=== PATIENT | female | born 1985 | race Hispanic/Latino ===

== ENCOUNTER 2017-10-13 09:27 | Emergency (ER) | payer BC, SELFPAY | END 2017-10-13 10:36 | disposition home or self-care (01) | LOC: ERS 09:27 | DX: F31.9 Bipolar disorder, unspecified; N63.10 Unspecified lump in the right breast, unspecified quadrant | CPT/HCPCS: 99283 ==

== ENCOUNTER 2018-02-13 14:23 | Outpatient (CLI) | payer MEDICAID | END 2018-02-13 14:24 | disposition home or self-care (01) | LOC: BICMAMMO 14:23 | PROVIDERS: ATTEND Nurse Practitioner Women's Health | DX: N63.10 Unspecified lump in the right breast, unspecified quadrant (principal) | CPT/HCPCS: 77066; G0279 ==

== ENCOUNTER 2018-06-19 07:39 | Outpatient (CLI) | payer MEDICAID ==
--- NOTE | 2018-06-19 09:29 | ULT ---
TRANSABDOMINAL AND TRANSVAGINAL PELVIC ULTRASOUND WITH DOPPLER: DATE: 06/19/2018. PROVIDED CLINICAL HISTORY: Amenorrhea, negative beta HCG. FINDINGS: Uterus measures approximately 8.2 x 4.3 x 4.3 cm and demonstrates a normal sonographic appearance to the uterine myometrium. Endometrial thickness is about 1.1 cm. The right ovary measures about 3.8 x 1.4 x 1.7 cm and appears sonographically unremarkable. The left ovary measures about 3.5 x 2.3 x 2.4 cm. There is a 1.9 cm circumscribed hypoechoic complex cystic structure within the left ovary presumably reflecting a physiologic cyst. Color Doppler no active disease spectral analysis of the ovarian waveforms demonstrates normal flow b ilaterally. No evidence for free pelvic fluid. IMPRESSION: 1. Nonspecific thickening of the uterine endometrium. 2. A 1.9 cm complex left ovarian mass, presumably reflecting a complicated physiologic cyst. Six to 12-month followup pelvic ultrasound recommended to evaluate for other lesion. POS: [facility]
== END 2018-06-19 07:40 | disposition home or self-care (01) ==
LOC: BICULT 07:39
PROVIDERS: ATTEND Advanced Practice Midwife
DX: N91.2 Amenorrhea, unspecified (principal); N83.291 Other ovarian cyst, right side
CPT/HCPCS: 76856

== ENCOUNTER 2018-06-22 19:46 | Emergency (ER) | payer MEDICAID, SELFPAY ==
[2018-06-22 20:20] LABS: #Lymphocytes 1.7 thou/uL (1.20-3.40); #Monocytes 0.6 thou/uL (0.11-0.59); #Neutrophils 5.9 thou/uL (1.40-6.50); %Basophils 0.4 % (0.0-1.0); %Eosinophils 0.5 % (0.0-10.0); %Lymphocytes 20.9 % (21.0-51.0); %Monocytes 7.2 % (0.0-10.0); Hemoglobin 13.2 g/dL (12.0-16.0); Mean Corpuscular HGB CONC 32.8 g/dL (32.0-36.0); Mean Corpuscular Hemoglobin 26.5 pg (27.0-31.0); Mean Corpuscular Volume 80.9 fL (78.0-98.0); Mean Platelet Volume 8.2 fL (7.4-10.4); Platelet Count 243 thou/uL (130-400); RBC Distribution Width 12.2 % (11.5-14.5); Red Blood Cell (RBC) Count 4.98 mill/uL (4.20-5.40); White Blood Cell (WBC) Count 8.3 thou/uL (4.8-10.8)
[2018-06-22 20:38] LABS: BHCG - Serum Negative (NEGATIVE); Pregs Control Background? CLEAR/WHITE (CLR/WHITE); Pregs Control Bar Appear? YES (CONTROL BAR)
[2018-06-22 20:47] LABS: Bilirubin Small (Negative); Blood, Urine Large (Negative); Glucose, Urine (Dipstick) Negative (Negative); Leukocyte Trace (Negative); Nitrite Positive (Negative); Protein, Urine (Dipstick) > or equal to 300 mg/dL (Neg-Trace); Urobilinogen 0.2 mg/dL (0.2-1.0); pH, Urine 6.5 (5.0-9.0)
[2018-06-22 20:48] LABS: Pathc Cast-AUWi Flag 0.14 (0-2.49)
[2018-06-22 20:49] LABS: Clarity Cloudy (Clear)
[2018-06-22 20:50] LABS: Specific Gravity, Urine 1.027 (1.002-1.036)
[2018-06-22 20:51] LABS: Pregnancy Test - Urine (BHCG) Negative (Negative); Pregu Control Background? CLEAR/WHITE (CLR/WHITE); Pregu Control Bar Appear? YES (CONTROL BAR); Specific Gravity 1.027 (1.002-1.036)
[2018-06-22] MEDS ORDERED: Ketorolac Tromethamine 30 MG/ML VIAL ONE (20:52)
[2018-06-22 20:55] LABS: ALT (SGPT) 14 U/L (8-55); AST (SGOT) 18 U/L (5-34); Albumin 4.1 g/dL (3.5-5.0); Alkaline Phosphatase 68 U/L (40-150); Anion Gap 13 mmol/L (10-20); BUN (Urea Nitrogen) 11 mg/dL (7.0-18.7); Bilirubin, Total 0.4 mg/dL (0.2-1.2); Calc. Creatinine Clearance 0 mL/min (70-130); Carbon Dioxide 23 mmol/L (22-29); Chloride 108 mmol/L (98-107); Estimated GFR-MDRD 88; Globulin 2.9 g/dL (2.4-3.5); Glucose 90 mg/dL (70-105); Lipase 19 U/L (8-78); Potassium 3.6 mmol/L (3.5-5.1); Sodium 140 mmol/L (136-145)
[2018-06-22 20:58] LABS: RBC/HPF GREATER THAN 50-TNTC HPF (0-3); WBC/HPF 21-50 HPF (0-3)
[2018-06-22 20:59] LABS: Bacteria/HPF 1+ HPF (None Seen); Hyaline Casts/LPF NONE SEEN LPF (0-3 Hyaline)
--- NOTE | 2018-06-22 22:03 | ULT ---
PELVIC ULTRASOUND: 06/22/18 Endovaginal ultrasound of pelvis performed. INDICATIONS: Pelvic pain. The uterus has a normal appearance in size. The endometrial stripe is normal measured at 5 to 6 mm. Both ovaries are identified. There is a small left ovarian cyst measuring approximately 1.8 cm. Color doppler and spectral analysis demonstrates normal and equal blood flow to both ovaries. Normal folli cles are seen in both ovaries. Tiny amount of free fluid in the cul-e-sac. IMPRESSION: Tiny amount of free fluid in the cul-de-sac which may be physiologic. Pelvic ultrasound is unremarkab le. POS: [facility]
== END 2018-06-22 23:31 | disposition home or self-care (01) ==
LOC: ERS 19:46
DX: N93.9 Abnormal uterine and vaginal bleeding, unspecified (principal); F31.9 Bipolar disorder, unspecified; F41.9 Anxiety disorder, unspecified
CPT/HCPCS: 36415; 76856; 80053; 81003; 81015; 81025; 83690; 84703; 85025; 96361; 96374; J1885

== ENCOUNTER 2018-10-24 14:53 | Emergency (ER) | payer MEDICAID ==
[2018-10-24 15:55] LABS: #Eosinphils 0.1 thou/uL (0.0-0.7); #Lymphocytes 1.7 thou/uL (1.20-3.40); #Monocytes 0.5 thou/uL (0.11-0.59); #Neutrophils 4.7 thou/uL (1.40-6.50); %Basophils 0.5 % (0.0-1.0); %Lymphocytes 23.8 % (21.0-51.0); %Monocytes 7.1 % (0.0-10.0); %Neutrophils 67.6 % (42.0-75.0); Hemoglobin 12.4 g/dL (12.0-16.0); Mean Corpuscular HGB CONC 32.8 g/dL (32.0-36.0); Mean Corpuscular Hemoglobin 25.9 pg (27.0-31.0); Mean Platelet Volume 8.8 fL (7.4-10.4); Platelet Count 228 thou/uL (130-400); RBC Distribution Width 12.3 % (11.5-14.5); Red Blood Cell (RBC) Count 4.78 mill/uL (4.20-5.40)
[2018-10-24 16:18] LABS: ALT (SGPT) 8 U/L (8-55); AST (SGOT) 17 U/L (5-34); Alkaline Phosphatase 60 U/L (40-150); Anion Gap 13 mmol/L (10-20); BUN (Urea Nitrogen) 12 mg/dL (7.0-18.7); Bilirubin, Total 0.2 mg/dL (0.2-1.2); Calc. Creatinine Clearance 0 mL/min (70-130); Calcium 9.4 mg/dL (7.8-10.44); Carbon Dioxide 24 mmol/L (22-29); Chloride 106 mmol/L (98-107); Estimated GFR-MDRD 78; Globulin 3.3 g/dL (2.4-3.5); Glucose 84 mg/dL (70-105); Potassium 4.1 mmol/L (3.5-5.1); Protein, Total 7.3 g/dL (6.0-8.3); Sodium 139 mmol/L (136-145)
[2018-10-24 16:19] LABS: Acetaminophen Less than 6.0 mcg/mL (10.0-30.0); Alcohol Less than 10 mg/dL (Less than 10); Salicylate Less than 8.0 mg/dL (15.0-30.0)
== END 2018-10-24 17:52 | disposition home or self-care (01) ==
LOC: ERS 14:53
DX: F41.9 Anxiety disorder, unspecified (principal); F31.9 Bipolar disorder, unspecified; Z79.899 Other long term (current) drug therapy
CPT/HCPCS: 36415; 80053; 80307; 84443; 85025; 93005; 94760

== ENCOUNTER 2019-01-06 19:59 | Emergency (ER) | payer BC, MEDICAID | END 2019-01-06 21:09 | disposition home or self-care (01) | LOC: ERS 19:59 | DX: S90.121A Contusion of right lesser toe(s) without damage to nail, initial encounter (principal); F41.9 Anxiety disorder, unspecified; F31.9 Bipolar disorder, unspecified; W22.8XXA Striking against or struck by other objects, initial encounter | CPT/HCPCS: 99283 ==

== ENCOUNTER 2019-02-11 06:57 | Outpatient (CLI) | payer BC ==
--- NOTE | 2019-02-11 08:02 | ULT ---
Exam: Pelvic ultrasound HISTORY: Follow-up left ovarian cyst noted on study of 06/27/2018. COMPARISON: 06/22/2018 TECHNIQUE: Multiple grayscale and color Doppler images were obtained in a transabdominal pelvic ultra sound. Spectral analysis of the Doppler waveforms of the ovaries were performed. FINDINGS: CERVIX: Nabothian cysts are seen. UTERUS: Normal in size without focal abnormality. ENDOMETRIAL STRIPE: 9 mm which is within normal limits for a normal menstruating female patient. No f luid or fluid collection is seen in the endometrial canal. No free fluid is present. RIGHT OVARY: Normal flow, without focal mass. LEFT OVARY: Normal flow, without focal mass. Previously noted dominant follicle/cyst in the left ovar y measuring 1.9 cm is not visualized on the current study. Small follicles are seen within the left ovary. IMPRESSION: Normal-appearing uterus and bilateral ovaries.
--- NOTE | 2019-02-11 09:01 | ULT ---
LIMITED RIGHT BREAST ULTRASOUND: DATE: 02/11/2019. PROVIDED CLINICAL HISTORY: Right breast mass. FINDINGS: Comparison is made with the study dated 02/13/2018. Circumscribed oval hypoechoic mass with smooth mar gins and no posterior shadowing is redemonstrated at the 12 o'clock position of the right breast. Th ere has been no significant interval change in size. IMPRESSION: BIRADS category 3 - probably benign findings. Six-month followup right breast ultrasound is recommen ded. POS: [facility]
== END 2019-02-11 06:58 | disposition home or self-care (01) ==
LOC: BICULT 06:57
PROVIDERS: ATTEND Family Medicine
DX: N60.01 Solitary cyst of right breast (principal); Z87.42 Personal history of other diseases of the female genital tract
CPT/HCPCS: 76856; 93976

== ENCOUNTER → 2019-02-21 | Day surgery (SDC) | payer BC ==
--- NOTE | 2019-02-21 15:45 | ULT ---
ULTRASOUND GUIDED RIGHT BREAST MASS BIOPSY: 02/21/19 INDICATION: Right breast mass in the 12 o'clock position 8 cm from the nipple. COMPARISON: Prior breast ultrasound dated 02/11/19. TECHNIQUE: Informed consent was obtained. The preprocedural ultrasound identified a lesion within the right [address]il[address] st 12 o'clock position, 8 cm from the nipple. It corresponds to the previous evaluation dated 02/11/19. Site overlying this region was prepped and draped in the usual sterile fashion. Buffered 1% lidocain e was administered overlying the subcutaneous tissues. Under ultrasound guidance, a 14 gauge core bio Diabeticay needle was guided down to the lesion. Three separate core samples were obtained of the lesion. A biopsy clip was then placed within the lesion. Pressure was held at the biopsy site until hemostasis was obtained. The patient tolerated the procedure without difficulties. The patient was then escorted to the mammography suite for a follow-up right breast mammogram for confirmation of clip deployment. IMPRESSION: BI-RADS 4: Suspicious Abnormality - Status post ultrasound guided core biopsy of the right breast mas s lesion in the 12 o'clock position 8 cm from the nipple. Awaiting pathology results. POS: OFF
--- NOTE | 2019-02-25 06:47 | MMO ---
Right Breast MAMMO Unilat Diag DDI RT. CLINICAL HISTORY: Patient is 33 years old and is seen for diagnostic exam. VIEWS: The views performed were: . FILMS COMPARED: The present examination has been compared to a prior imaging study performed at [facility] on 02/11/2019. MAMMOGRAM FINDINGS: The breast is heterogeneously dense, which could obscure a lesion on mammography. There is an oval mass measuring 25 millimeters with circumscribed margins and associated biopsy clip seen in the posterior region of the right breast at 12 o'clock. IMPRESSION: MASS IN THE RIGHT BREAST IS SUSPICIOUS. PATIENT IS STATUS POST RIGHT BREAST MASS ULTRASOUND GUIDED BIOPSY. THE CLIP IS DEPLOYED WITHIN THE MASS. THE RESULTS OF THIS EXAM WERE SENT TO THE PATIENT. ACR BI-RADS Category 4 - Suspicious abnormality - biopsy should be considered MAMMOGRAPHY NOTE: 1. A negative mammogram report should not delay a biopsy if a dominant of clinically suspicious mass is present. 2. Approximately 10% to 15% of breast cancers are not detected by mammography. 3. Adenosis and dense breasts may obscure an underlying neoplasm. Reported by: DANIEL VICK MD Electonically Signed: [id number]
== END ==
LOC: BICULT 12:23
PROVIDERS: ATTEND Family Medicine
PROC: 0H9T3ZX Drainage of Right Breast, Percutaneous Approach, Diagnostic (ICD-10-PCS; principal; 2019-02-21)
DX: D24.1 Benign neoplasm of right breast (principal)
CPT/HCPCS: 19083; 88305

== ENCOUNTER 2019-04-08 21:24 | Emergency (ER) | payer BC | END 2019-04-08 22:20 | disposition home or self-care (01) | LOC: ERS 21:24 | DX: R20.2 Paresthesia of skin (principal); F41.9 Anxiety disorder, unspecified; F31.9 Bipolar disorder, unspecified | CPT/HCPCS: 99283 ==

== ENCOUNTER 2019-09-22 20:52 | Emergency (ER) | payer BC ==
[2019-09-22] MEDS ORDERED: Ketorolac Tromethamine 30 MG/ML VIAL ONE (21:39)
--- NOTE | 2019-09-22 21:54 | RAD ---
LEFT SHOULDER THREE VIEWS: History: Pain. FINDINGS: No fracture or dislocation. AC joint normally aligned. No degenerative change. IMPRESSION: Unremarkable left shoulder. POS: [facility]
== END 2019-09-22 21:50 | disposition home or self-care (01) ==
LOC: ERS 20:52
DX: M62.838 Other muscle spasm (principal); F31.9 Bipolar disorder, unspecified; F41.9 Anxiety disorder, unspecified; X50.0XXA Overexertion from strenuous movement or load, initial encounter
CPT/HCPCS: 96372; J1885

== ENCOUNTER 2020-01-16 13:40 | Emergency (ER) | payer BC, OTHER ==
[2020-01-16 14:24] LABS: #Eosinphils 0.1 thou/uL (0.0-0.7); #Lymphocytes 1.6 thou/uL (1.20-3.40); #Monocytes 0.5 thou/uL (0.11-0.59); #Neutrophils 5.1 thou/uL (1.40-6.50); %Basophils 0.1 % (0.0-1.0); %Eosinophils 0.8 % (0.0-10.0); %Lymphocytes 21.6 % (21.0-51.0); %Monocytes 7.2 % (0.0-10.0); %Neutrophils 70.3 % (42.0-75.0); Mean Corpuscular Hemoglobin 25.5 pg (27.0-31.0); Mean Corpuscular Volume 79.5 fL (78.0-98.0); Mean Platelet Volume 9.2 fL (7.4-10.4); Platelet Count 240 thou/uL (130-400); RBC Distribution Width 14.1 % (11.5-14.5); Red Blood Cell (RBC) Count 5.12 mill/uL (4.20-5.40); White Blood Cell (WBC) Count 7.2 thou/uL (4.8-10.8)
[2020-01-16 14:46] LABS: ALT (SGPT) 53 U/L (8-55); AST (SGOT) 44 U/L (5-34); Albumin 4.3 g/dL (3.5-5.0); Alkaline Phosphatase 60 U/L (40-110); Anion Gap 12 mmol/L (10-20); BUN (Urea Nitrogen) 13 mg/dL (7.0-18.7); Bilirubin, Total 0.5 mg/dL (0.2-1.2); CK (CPK) 57 U/L (29-168); Calc. Creatinine Clearance 0 mL/min (70-130); Calcium 9.2 mg/dL (7.8-10.44); Carbon Dioxide 23 mmol/L (22-29); Chloride 104 mmol/L (98-107); Estimated GFR-MDRD 88; Glucose 95 mg/dL (70-105); Potassium 3.9 mmol/L (3.5-5.1); Protein, Total 7.3 g/dL (6.0-8.3); Sodium 135 mmol/L (136-145)
[2020-01-16 14:52] LABS: BHCG - Serum Negative (NEGATIVE); Pregs Control Background? CLEAR/WHITE (CLR/WHITE); Pregs Control Bar Appear? YES (CONTROL BAR)
== END 2020-01-16 15:22 | disposition home or self-care (01) ==
LOC: ERS 13:40
DX: M54.5 Low back pain (principal); F41.9 Anxiety disorder, unspecified; F31.9 Bipolar disorder, unspecified
CPT/HCPCS: 80053; 82550; 83605; 84703; 85025; 99283

== ENCOUNTER 2020-07-16 13:55 | Outpatient (CLI) | payer MEDICAID ==
--- NOTE | 2020-07-16 14:42 | MMO ---
Bilateral MAMMO Bilat Diag DDI+ELIZABETH. CLINICAL HISTORY: Patient is 34 years old and is seen for diagnostic exam,lump or thickening in the upper-outer region of the left breast and pain in the upper region of the right breast. The patient has no family history of breast cancer. The patient has no personal history of cancer. 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 VIEWS: The views performed were: bilateral craniocaudal with tomosynthesis; bilateral mediolateral oblique with tomosynthesis; and bilateral mediolateral with tomosynthesis. FILMS COMPARED: The present examination has been compared to prior imaging studies performed at [facility] on 02/11/2019, 02/21/2019 and 07/16/2020. This study has been interpreted with the assistance of computer-aided detection. MAMMOGRAM FINDINGS: The breasts are heterogeneously dense, which could obscure a lesion on mammography. Finding 1: There is a stable oval mass with associated biopsy clip seen in the posterior region of the right breast at 12 o'clock. Finding 2: There are no mammographic or sonographic abnormalities to explain the patient's breast pain. The patient is referred back to her clinician. Negative imaging findings should not preclude biopsy if clinical findings are suspicious. Finding 3: There is an equal density, oval mass with circumscribed margins seen in the upper-outer region of the left breast. This corresponds to the palpable finding and the sonographic characteristics are typical for fibroadenoma. IMPRESSION: FINDING 2: THERE ARE NO MAMMOGRAPHIC ABNORMALITIES TO EXPLAIN THE PATIENT'S BREAST PAIN. THE PATIENT IS REFERRED BACK TO HER CLINICIAN. NEGATIVE IMAGING FINDINGS SHOULD NOT PRECLUDE BIOPSY IF CLINICAL FINDINGS ARE SUSPICIOUS. FINDING 3: MASS IN THE LEFT BREAST IS PROBABLY BENIGN. FOLLOW-UP ULTRASOUND IN 6 MONTHS IS RECOMMENDED. THE RESULTS OF THIS EXAM WERE SENT TO THE PATIENT. ACR BI-RADS Category 3 - Probably benign finding - short interval follow-up suggested. [facility] will notify the patient of the need for additional imaging services. MAMMOGRAPHY NOTE: 1. A negative mammogram report should not delay a biopsy if a dominant of clinically suspicious mass is present. 2. Approximately 10% to 15% of breast cancers are not detected by mammography. 3. Adenosis and dense breasts may obscure an underlying neoplasm. Reported by: SANJEEV HA MD Electonically Signed: [id number]
--- NOTE | 2020-07-16 14:45 | ULT ---
EXAM: Limited right breast ultrasound Limited left breast ultrasound PROVIDED CLINICAL HISTORY: Right breast pain Left breast palpable abnormality COMPARISON: Ultrasound 02/11/2019 FINDINGS: Limited sonographic interrogation was performed of the right breast in the region of patient pain. De nse breast tissue is seen in this region mammographically and sonographically, without evidence for focal mass. There is a stable fibroadenoma immediately inferior to this area. Limited sonographic interrogation of the left breast was performed at the 1:00 position in the region of palpable concern. There is a circumscribed, smoothly marginated hypoechoic mass measuring about 1.7 cm in the region of palpable concern. Sonographic findings are typical for fibroadenoma. IMPRESSION: 1. No concerning sonographic or mammographic findings in the region of right breast pain. Negative im aging findings should not preclude further evaluation of a clinically suspicious abnormality. The patient is referred back to her clinician. 2. 1.7 cm hypoechoic mass involving the left breast in the region of palpable concern, typical for fi broadenoma. Six-month follow-up ultrasound is recommended. BI-RADS 3 -- probably benign, 6-month follow-up
== END 2020-07-16 13:56 | disposition home or self-care (01) ==
LOC: BICMAMMO 13:55
PROVIDERS: ATTEND Family Medicine
DX: N63.21 Unspecified lump in the left breast, upper outer quadrant (principal)
CPT/HCPCS: 77066; G0279

== ENCOUNTER 2020-08-03 06:58 | Outpatient (CLI) | payer BC ==
[2020-08-03 10:40] LABS: #Monocytes 0.4 10x3/uL (0.0-1.1); #Neutrophils 3.7 10x3/uL (1.5-8.4); %Basophils 0.2 % (0.0-2.0); %Eosinophils 0.4 % (0.0-6.0); %Lymphocytes 25.4 % (18.0-47.0); %Monocytes 6.5 % (0.0-10.0); %Neutrophils 67.3 % (40.0-75.0); Hemoglobin 13.1 g/dL (12.0-16.0); Mean Corpuscular HGB CONC 30.5 G/DL (32.0-36.0); Mean Corpuscular Hemoglobin 24.9 PG (27.0-33.0); Mean Corpuscular Volume 81.7 fl (80.0-100.0); Platelet Count 263 10x3/uL (130-400); RBC Distribution Width 14.2 % (11.5-14.5); Red Blood Cell (RBC) Count 5.26 10x6/uL (3.90-5.20); White Blood Cell (WBC) Count 5.5 10x3/uL (4.5-11.0)
[2020-08-03 10:54] LABS: BHCG - Serum Negative (NEGATIVE); Pregs Control Background? CLEAR/WHITE (CLR/WHITE); Pregs Control Bar Appear? YES (CONTROL BAR)
[2020-08-03 11:01] LABS: Anion Gap 14 mmol/L (10-20); BUN (Urea Nitrogen) 11 mg/dL (7.0-18.7); Calc. Creatinine Clearance 0 mL/min (70-130); Calcium 9.5 mg/dL (7.8-10.44); Carbon Dioxide 26 mmol/L (22-29); Chloride 105 mmol/L (98-107); Glucose 100 mg/dL (70-105); Potassium 3.9 mmol/L (3.5-5.1); Sodium 141 mmol/L (136-145)
[2020-08-03 20:52] LABS: SARS-CoV-2 PCR by NAA Not Detected (NotDetected)
== END 2020-08-03 06:59 | disposition home or self-care (01) ==
LOC: LABBT 06:58
PROVIDERS: ATTEND Surgery
DX: Z01.812 Encounter for preprocedural laboratory examination (principal); N63.10 Unspecified lump in the right breast, unspecified quadrant; N63.20 Unspecified lump in the left breast, unspecified quadrant; Z20.822 Contact with and (suspected) exposure to COVID-19
CPT/HCPCS: 80048; 84703; 85025; 87635; U0003; U0005

== ENCOUNTER 2020-08-06 06:03 | Day surgery (SDC) | payer BC ==
[2020-08-04 11:04] VITALS: BMI 23.8
[2020-08-06] MEDS ORDERED: Ketorolac Tromethamine 30 MG/ML VIAL ONE (06:33)
[2020-08-06] MEDS ORDERED: XYLOCAINE 2%-EPI 1:100,000 20 ML VIAL ONE (06:59)
[2020-08-06] MEDS ORDERED: Bupivacaine 0.25% HCL 30 ML VIAL ONE (06:59)
[2020-08-06] MEDS ORDERED: Fentanyl 100 MCG/2 ML VIAL ONE ×2 (07:23→07:50)
[2020-08-06] MEDS ORDERED: Midazolam HCl 2 mg/2 ml Vial ONE (07:45)
[2020-08-06] MEDS ORDERED: Lidocaine 1% PF 5 ML VIAL ONE (09:58)
[2020-08-06] MEDS ORDERED: PHENYLEPHRINE-NS 100 MCG/ML 10 ML SYRINGE ONE (09:58)
[2020-08-06] MEDS ORDERED: Ondansetron PF 4 MG/2 ML Vial ONE (09:58)
[2020-08-06] MEDS ORDERED: Dexamethasone 20 MG/5 ML VIAL ONE (09:58)
[2020-08-06] MEDS ORDERED: PROPOFOL 200 MG/20 ML VIAL ONE (09:58)
[2020-08-06] MEDS ORDERED: ePHEDrine 50 MG/ML VIAL ONE (09:58)
[2020-08-06] MEDS ORDERED: HYDROcodone/Acetaminophen 5/325 mg Tablet ONE ×2 (10:57→10:58)
== END 2020-08-06 12:00 | disposition home or self-care (01) ==
LOC: SDC 06:03
PROVIDERS: ATTEND Surgery
PROC: 0H9V3ZX Drainage of Bilateral Breast, Percutaneous Approach, Diagnostic (ICD-10-PCS; principal; 2020-08-06)
DX: D24.1 Benign neoplasm of right breast (principal); D24.2 Benign neoplasm of left breast
CPT/HCPCS: 88305; J1100; J1885; J2250; J2405; J2704; J3010; J3490; S0020

== ENCOUNTER 2021-04-27 09:09 | Outpatient (CLI) | payer OTHER, MEDICAID | END 2021-04-27 09:10 | disposition home or self-care (01) | LOC: BICMAMMO 09:09 | PROVIDERS: ATTEND Student in an Organized Health Care Education/Training Program | DX: D24.9 Benign neoplasm of unspecified breast (principal); N60.01 Solitary cyst of right breast | CPT/HCPCS: 77066; G0279 ==